=== PATIENT | female | born 1980 | race Caucasian/White ===

== ENCOUNTER 2016-04-01 16:57 | Emergency (ER) | payer OTHER ==
[2016-04-01] MEDS ORDERED: METOCLOPRAMIDE HCL 5 MG/ML 2ML VIAL ONE (19:49)
[2016-04-01] MEDS ORDERED: DIPHENHYDRAMINE HCL 50 MG/1 ML VIAL ONE (19:49)
[2016-04-01] MEDS ORDERED: KETOROLAC TROMETHAMINE 60 MG/2 ML VIAL ONE (19:49)
== END 2016-04-01 20:27 | disposition home or self-care (01) ==
LOC: ED 16:57
DX: G43.909 Migraine, unspecified, not intractable, without status migrainosus (principal); Z76.0 Encounter for issue of repeat prescription; M79.7 Fibromyalgia; F17.210 Nicotine dependence, cigarettes, uncomplicated; Z79.899 Other long term (current) drug therapy
CPT/HCPCS: 99283 ×2; 96372 ×3; J1200; J2765; J1885

== ENCOUNTER 2016-04-16 22:23 | Emergency (ER) | payer OTHER ==
[2016-04-16] MEDS ORDERED: KETOROLAC TROMETHAMINE 60 MG/2 ML VIAL ONE (22:56)
[2016-04-16] MEDS ORDERED: METOCLOPRAMIDE HCL 5 MG/ML 2ML VIAL ONE (22:56)
[2016-04-16] MEDS ORDERED: DIPHENHYDRAMINE HCL 50 MG/1 ML VIAL ONE (22:57)
== END 2016-04-16 23:19 | disposition home or self-care (01) ==
LOC: ED 22:23
DX: G44.209 Tension-type headache, unspecified, not intractable (principal); G43.909 Migraine, unspecified, not intractable, without status migrainosus
CPT/HCPCS: 99282; 96372 ×3; 99283; J1200; J2765; J1885